=== PATIENT | male | born 1960 | race African-American/Black ===

== ENCOUNTER 2019-02-28 00:54 | Emergency (ER) | payer MEDICAID ==
[~2019-02-28] VITALS: Ht 180.3 cm; Wt 82.0 kg
[2019-02-28] MEDS ORDERED: MORPHINE SULFATE 4 MG/ML CPJ (NOT FOR IM USE) IV ONE (06:30)
[2019-02-28] MEDS ORDERED: ONDANSETRON HCL 4MG/2ML INJ IV ONE (06:30)
[2019-02-28] MEDS ORDERED: SUCRALFATE 1 G/10 ML UDC PO ONE (08:00)
[2019-02-28] MEDS ORDERED: BACITRACIN ZINC OINT UDPKT TOP ONE (09:15)
[2019-02-28] MEDS ORDERED: LIDOCAINE HCL/PF 1% 10 MG/ML 5ML VIAL IJ ONE (09:15)
[2019-02-28 15:39] LABS: BASOPHILS % 0.8 % (0.0-2.0); EOSINOPHILS % 2.4 % (0.0-5.0); HEMATOCRIT. 43.6 % (42.0-52.0); HEMOGLOBIN. 14.6 g/dL (14.0-18.0); MEAN CORPUSCULAR HEMOGLOBIN 31.5 pg (28.0-32.0); MEAN CORPUSCULAR VOLUME 94.4 fL (80.0-94.0); MEAN PLATELET VOLUME 7.9 fl (7.4-10.4); NEUTROPHILS % 70.8 % (40.0-76.0); PLATELET 242 x1000/uL (130-400); RED BLOOD CELL COUNT 4.62 mill/uL (4.7-6.1); RED CELL DISTRIBUTION WIDTH 14.4 % (11.6-14.6)
[2019-02-28 15:44] LABS: CHLORIDE 106 mEq/L (98-107)
[2019-02-28 15:48] LABS: ETHANOL BLOOD < 10 mg/dL
[2019-03-01 12:33] VITALS: BP 132/78
== END 2019-03-01 12:34 | disposition home or self-care (01) ==
LOC: ER 00:54
DX: H61.032 Chondritis of left external ear (principal); S00.432A Contusion of left ear, initial encounter; Y08.89XA Assault by other specified means, initial encounter; Y93.89 Activity, other specified; Y92.89 Other specified places as the place of occurrence of the external cause; Y99.8 Other external cause status
CPT/HCPCS: 10060; 36415; 70450; 70486; 80053; 80320; 85025; 96374; 96375; 99284; J2270; J2405; J3490; Z7610; G0480